=== PATIENT | female | born 1985 | race Caucasian/White ===

== ENCOUNTER 2017-02-13 18:49 | Outpatient (CLI) | payer OTHER ==
[~2017-02-13] VITALS: Ht 160 cm; Wt 102.7 kg
[2017-02-13 19:07] VITALS: BP 125/62; PULSE 95; RESP 16; Ht 160 cm; Wt 102.7 kg
[2017-02-13] MEDS ORDERED: ENOX40DI12 SQ (19:12)
[2017-02-13] MEDS ORDERED: HYDR250V5 IM (19:14)
[2017-02-13] MEDS ORDERED: PRENAT PO (19:15)
--- NOTE | 2017-02-13 20:37 | RADRPT ---
PROCEDURE: US OB. CLINICAL INDICATION: Size and dates , vaginal bleeding TECHNIQUE: Multiple sonographic images of the pelvis and gravid uterus were obtained. The images were reviewed on a PACS workstation. COMPARISON: No prior studies are available for comparison. FINDINGS: There is a single viable intrauterine gestation. Cardiac activity is present with 138 beats per min bi. There is a vertex presentation. The placenta is anterior. There is no evidence for an abruption or placenta previa. MVP = 7.6 cm. Measurements were made in order to determine age. The results are as follows: BPD =5.9 cm HC =21.5 cm AC =18.8 cm FL =4.1 cm Estimated gestational age of approximately 23 weeks and 5 days based on ultrasound measurements. Clinical age: 23 weeks and 2 days. The estimated date of delivery is 06/07/17, based on ultrasound measurements. The EFW = 599 g, 51.8%, based on LMP age. RPTAT: AA IMPRESSION: Single viable intrauterine gestation of approximately 23 weeks and 5 days based on ultrasound measu rements. .Luis Beavers MD, Date Time Electronically viewed and signed by .Luis Beavers MD, MD on 02/13/2017 20:37 .S/
[2017-02-13 22:12] LABS: ADD UMIC NO; UR ASCORBIC ACID NEGATIVE (NEGATIVE); UR BILIRUBIN (Dip) NEGATIVE (NEGATIVE); UR BLOOD (Dip) NEGATIVE (NEGATIVE); UR CLARITY CLEAR (CLEAR); UR COLOR YELLOW (YELLOW); UR GLUCOSE (Dip) NEGATIVE (NEGATIVE); UR KETONES (Dip) 1+ mg/dL (NEGATIVE); UR LEUKOCYTE ESTERASE (Dip) NEGATIVE Leu/ul (NEGATIVE); UR NITRITE (Dip) NEGATIVE (NEGATIVE); UR SPECIFIC GRAVITY (Dip) 1.025 (1.003-1.030); UR TOTAL PROTEIN (Dip) NEGATIVE (NEGATIVE); UR UROBILINOGEN (Dip) NEGATIVE (NEGATIVE)
--- NOTE | 2017-02-13 22:54 | RADRPT ---
PROCEDURE: Obstetrical ultrasound greater than 14 weeks CLINICAL INDICATION: Spotting. Evaluate cervical length TECHNIQUE: Real time sonographic imaging of the gravid uterus is performed transabdominally and mu ltiple static anders scale and Doppler images are submitted for review as are measurements. The image s are reviewed on the PACS. COMPARISON: 02/13/2017 at 20:04 FINDINGS: The cervical os is closed with a normal cervical length of 3.89 cm. There is a single living intrauterine gestation in cephalic presentation. The heart beat is estimated at 137 bpm. Placenta is anterior and grade 0. There is no evidence of placenta previa or abruption. RPTAT:HJJR IMPRESSION: 1. Single viable intrauterine gestation in cephalic presentation with the closed cervix length estim ated at 3.89 cm. Physician Alfredo Date Time Electronically viewed and signed by Physician Alfredo on 02/13/2017 22:53 /
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
--- NOTE | 2017-02-13 23:17 | PN ---
Triage Information Date/Time 02/13/1708/27/2309 Reason for visit: Vag spotting / bleeding Weeks of Gestation 23w2d /Para A2 Diabetes: none Hypertention: none Additional information Hx of DVT and PE Hx of SAB at 8w and 19w on [id number] daily Olga 250mg IM weekly CVL every 2weeks last measurement was adela 1w ago was 4cm Objective Vital Signs Date Time Temp Pulse Resp B/P Pulse Ox O2 Delivery O2 Flow Rate FiO2 02/13/17 19:07 98.5 95 16 125/62 Heart Rate: 140's Contractions: None Results/Medications Results 24 hrs Laboratory Tests Test 02/13/17 21:45 Urine Color YELLOW Urine Clarity CLEAR Urine pH 5.0 Urine Specific [place] 1.025 Urine Ketones 1+ H Urine Nitrite NEGATIVE Urine Bilirubin NEGATIVE Urine Urobilinogen NEGATIVE Urine Leukocyte Esterase NEGATIVE Urine Hemoglobin NEGATIVE Urine Glucose NEGATIVE Urine Total Protein NEGATIVE Imaging Results CVL 3.89 EFW 599gm MVP 7.6 no abruptio or Placenta previa Disposition: Discharge Assessment/Plan A IUP 23w2d vaginal spotting P f/u at her OB LUCIE PALMER MD Feb 13, 2017 23:17
== END 2017-02-13 23:18 | disposition home or self-care (01) ==
LOC: OBT 18:49 → L-D 18:51 → OBT 23:18
PROVIDERS: ATTEND Obstetrics & Gynecology
DX: O46.8X2 Other antepartum hemorrhage, second trimester (principal); Z3A.23 23 weeks gestation of pregnancy
CPT/HCPCS: 76805; 76817; 81003; Z7500; G0463